=== PATIENT | female | born 1985 | race Caucasian/White ===

== ENCOUNTER 2017-12-20 10:52 | Inpatient (IN) | payer OTHER ==
[2017-12-19 14:37] VITALS: BMI 52.0
--- NOTE | 2017-12-20 13:08 | HP ---
Admitting History and Physical - Admission Chief Complaint: Morbid obesity History Source: Patient Limitations to Obtaining History: No Limitations - Past Medical History ...LMP: 12/17/17 ...LMP Comment: pt. has a IUD - Smoking History Smoking history: Never smoked - Alcohol/Substance Use Hx Alcohol Use: Yes (social) Home Medications - Allergies Allergies/Adverse Reactions: Allergies Allergy/AdvReac Type Severity Reaction Status Date / Time No Known Allergies Allergy Verified 12/20/17 11:48 - Home Medications Home Medications: Ambulatory Orders Cholecalciferol (Vitamin D3) [Vitamin D3] 5,000 unit PO DAILY 12/20/17 Multivitamin [One Daily] 1 each PO DAILY 12/20/17 Family Disease History - Family Disease History Family History: Denies Review of Systems - Review of Systems Constitutional: denies: Chills, Fever HENT: reports: No Symptoms Neck: reports: No Symptoms Cardiovascular: reports: No Symptoms Respiratory: reports: No Symptoms Gastrointestinal: reports: No Symptoms Neurological: reports: No Symptoms Pain Intensity: 0 Physical Examination Vital Signs: Vital Signs Temperature 98.0 F 12/20/17 11:34 Pulse Rate 68 12/20/17 11:34 Respiratory Rate 20 12/20/17 11:34 Blood Pressure 131/82 12/20/17 11:34 O2 Sat by Pulse Oximetry (%) 98 12/20/17 11:33 Constitutional: Yes: Calm HENT: Yes: WNL Neck: Yes: WNL Cardiovascular: Yes: WNL Respiratory: Yes: Regular Gastrointestinal: Yes: Soft, Abdomen, Obese Extremities: Yes: WNL Neurological: Yes: Alert, Oriented Problem List - Problems (1) Morbid obesity due to excess calories Code(s): E66.01 - MORBID (SEVERE) OBESITY DUE TO EXCESS CALORIES (2) BMI 50.0-59.9, adult Code(s): Z68.43 - BODY MASS INDEX (BMI) 50-59.9, ADULT Assessment/Plan Laparoscopic possible open vertical sleeve gastrectomy, possible liver biopsy, EGD
[2017-12-20] MEDS ORDERED: ONDANSETRON 4 MG/2 ML VIAL IVPUSH PRN (13:20)
[2017-12-20] MEDS ORDERED: DEXAMETHASONE SOD PHOSPHATE 4 MG/1 ML VIAL ONE (13:21)
[2017-12-20] MEDS ORDERED: PROPOFOL 20 ML ONE (13:21)
[2017-12-20] MEDS ORDERED: LIDOCAINE HCL/PF 2% SDV 5ML VIAL ONE (13:21)
[2017-12-20] MEDS ORDERED: ONDANSETRON 4 MG/2 ML VIAL ONE (13:21)
[2017-12-20] MEDS ORDERED: fentaNYL CITRATE 250 MCG/5 ML VIAL ONE (13:21)
[2017-12-20] MEDS ORDERED: MIDAZOLAM HCL 2 MG/2 ML SINGLE DOSE VIAL ONE (13:21)
[2017-12-20] MEDS ORDERED: ROCURONIUM BROMIDE 50 MG/5 ML VIAL ONE (13:21)
[2017-12-20] MEDS ORDERED: LACTATED RINGERS SOLUTION 1,000 ML IV SCH (13:30)
[2017-12-20] MEDS ORDERED: ceFAZolin SODIUM 1 GM VIAL ONE (14:00)
[2017-12-20] MEDS ORDERED: ceFAZolin SODIUM 1 GM VIAL IVPB ONE (14:05)
[2017-12-20] MEDS ORDERED: BUPIVACAINE HCL/PF (5 MG/ML) 30 ML VIAL IJ ONE (14:17)
[2017-12-20] MEDS ORDERED: NEOSTIGMINE METHYLSULFATE 0.5 MG/1 ML - 10 ML MDV ONE (14:49)
[2017-12-20] MEDS ORDERED: GLYCOPYRROLATE 0.2 MG/1 ML VIAL ONE (14:49)
[2017-12-20] MEDS ORDERED: morphine SULFATE 4 MG/ML VIAL IVPUSH PRN (14:54)
--- NOTE | 2017-12-20 14:54 | OP ---
Operative Note - Note: Operative Date: 12/20/17 Pre-Operative Diagnosis: Morbid obesity. BMI 52 Operation: Laparoscopic vertical sleeve gastrectomy, wedge liver biopsy, EGD Post-Operative Diagnosis: Other (Morbid obesity, BMI 52, hepatomegaly) Surgeon: Joni Martinez (tai styles) Workgroup Leader: Justen Orellana Anesthesia: General Specimens Removed: Greater curvature of stomach. Liver biopsy Estimated Blood Loss (mls): 30 Drains & Tubes with Location: 36 fr Bougie Operative Report Dictated: Yes
--- NOTE | 2017-12-20 15:18 | SURG ---
Surgery Pediatric Physician Note Pediatric Physician: Justen Orellana PA-C (Suzy) Date of Service: 12/20/17 Diagnosis: morbid obesity Procedure: Laparoscopic vertical sleeve gastrectomy, wedge liver biopsy, EGD I was present for the entirety of the operative procedure. For further detail, please refer to operative report. Visit type - Case Type Case Type: Scheduled - Emergency Emergency Visit: No - New patient This patient is new to me today: Yes Date on this admission: 12/20/17 - Critical Care Critical Care patient: No
[2017-12-20] MEDS: ACETAMINOPHEN 1000 MG/100 ML VIAL (NON FORMULARY) IVPB SCH ×3 (15:25→22:18)
--- NOTE | 2017-12-20 15:39 | SPEC ---
DATE OF OPERATION: 12/20/2017 SURGEON: Joni Martinez MD ELECTRICIAN SECOND: Yoav Stanton PA-C and Elizabeth Orellana. PREOPERATIVE DIAGNOSES: 1. Morbid obesity. 2. Body mass index of 53.1. POSTOPERATIVE DIAGNOSES: 1. Morbid obesity. 2. Body mass index of 53.1. 3. Hepatomegaly. PROCEDURE: 1. Laparoscopic vertical sleeve gastrectomy. 2. Laparoscopic wedge liver biopsy. 3. Upper endoscopy/esophagogastroduodenoscopy. SPECIMEN: 1. Greater curvature of the stomach. 2. Liver biopsy. ESTIMATED BLOOD LOSS: 30 mL DRAINS: None. ANESTHESIA: GET. BOUGIE: Size 36-Moroccan. REASON FOR PROCEDURE: This is a 32-year-old female who presented to the office for weight loss options. After describing different options, she has decided to proceed with the laparoscopic, possible open vertical sleeve gastrectomy, possible liver biopsy, and upper endoscopy. RISKS AND BENEFITS: After describing the different options for weight loss management, the patient decided to proceed with a laparoscopic, possible open vertical sleeve gastrectomy. The patient was seen by the respective subspecialties and cleared for surgery. The risks and benefits of the procedure were explained. These included bleeding, infection, hernia, TX, DVT, PE, injury to surrounding structures including the liver, colon, bowel, spleen, esophagus, vessel injury, nerve injury, weight regain, gastric leak, staple line leak, sleeve leak, obstruction, vitamin deficiency, hair loss and as some of the possible complications. The patient understood and signed informed consent. DESCRIPTION OF PROCEDURE: The patient was placed supine on the operating room table. The patient underwent general endotracheal intubation. The arms were brought out at 90 degrees and secured. A footboard was placed and the legs were secured laterally with padding. The abdomen was prepped and draped in the usual sterile fashion. A timeout was performed. An incision was made in the left upper quadrant and a Veress needle inserted. Pneumoperitoneum was established. Subsequently, the Veress needle was removed and a 5-mm trocar was placed under direct visualization with the laparoscope. The laparoscopic camera was then inserted and inspection of the abdominal cavity was performed. An incision was then made in the supraumbilical area and a 15-mm trocar was placed under direct visualization. A 5-mm trocar was then placed in the right upper quadrant and a 5-mm trocar was placed below the left subcostal margin. A stab wound was made in the subxiphoid area and a Sherry clamp inserted and removed to dilate the tract. A Cindy liver retractor was inserted. The post was secured at the bedside by the nursing staff. The patient was placed in steep reverse Trendelenburg position and the Cindy liver retractor was used to secure the liver towards the anterior abdominal wall. The pylorus was identified and 6 cm proximal to it, the lesser sac was entered using the LigaSure device. All lateral attachments to the greater curvature of the stomach, including the short gastric vessels, were ligated using the LigaSure device toward the gastrosplenic and gastrophrenic ligaments. Once this was done in its entirety, it was confirmed that all tubes within the nasal or oropharyngeal cavity, including a temperature probe, was removed by Anesthesia. The bougie was then inserted by Anesthesia. Transection of the stomach was then begun staying adjacent to the bougie but away from the angularis. Transection of the stomach was performed near the portion of the stomach where the lesser sac was entered. Two laparoscopic Endo-SHARATH black александр were used at this location. Laparoscopic Endo SHARATH purple staple loads were then used for the remainder of the transection until the greater curvature of the stomach was fully transected. This was done staying close to the bougie. Care was taken to stay away from the angle of His cephalad. The staple line was then inspected. Hemostasis was identified. A leak test was then performed. It was clamped distally to the staple line. Irrigation solution was placed in the left upper quadrant and air was insufflated by Anesthesia into the sleeve. No leaks were identified. No obstruction was identified. This was done through the entirety of the staple line. In addition, an upper endoscopy was performed. The endoscope was placed into the patients mouth and the entirety of the esophagus, GE junction, gastric pouch and staple line were inspected. No obstruction or leak was noted. The stomach was suctioned and the endoscope removed fully intact. At this point, the irrigation solution was suctioned and again, hemostasis was noted. A wedge liver biopsy was then performed. The left lobe of the liver was identified and a portion of the edge was grasped. Using electrocautery, a wedge of the liver was excised. This was removed and sent off the field as specimen. Hemostasis at the site of the wedge liver biopsy was attained using electrocautery. The 15-mm supraumbilical trocar was then removed and the greater curvature specimen removed from the site using a sponge stick crane. The specimen was inspected and a Veress needle inserted. The specimen insufflated adequately and no leak was identified. The staple line was noted to be intact. A Bib-Ute device was then used to close the fascia with a 0 Vicryl suture at the site. Again, hemostasis was noted. The Cindy liver retractor was then removed under direct visualization. Pneumoperitoneum was desufflated and the fascial sutures were secured. Hemostasis was noted at all incision sites and Marcaine was injected at all incision sites. All incision sites were closed using 4-0 Biosyn. Sterile dressings were applied. The patient tolerated the procedure well and was transferred to the recovery room in stable condition. The patient was transferred to telemetry for further monitoring. Lorena [id number]
[2017-12-20] MEDS: KETOROLAC TROMETHAMINE 30 MG/1 ML VIAL IVPUSH ONE ×2 (15:40→21:52)
[2017-12-20] MEDS: METOCLOPRAMIDE HCL INJECTION 10 MG/2 ML VIAL IVPUSH SCH ×3 (16:00→22:07)
[2017-12-20 16:32] LABS: HEMATOCRIT 40.8 % (32.4-45.2); HEMOGLOBIN 13.3 GM/dL (10.7-15.3); MCH 26.2 pg (25.7-33.7); MCHC 32.5 g/dl (32.0-36.0); MEAN CELL VOLUME 80.7 fl (80-96); MEAN PLT VOLUME 9.1 fl (7.5-11.1); PLATELET COUNT 250 K/MM3 (134-434); RBC 5.06 M/mm3 (3.60-5.2); RDW 13.5 % (11.6-15.6); WHITE BLOOD COUNT 11.5 K/mm3 (4.0-10.0)
[2017-12-20 16:54] LABS: ALBUMIN 3.5 g/dl (3.4-5.0); ALK PHOS 82 U/L (45-117); ANION GAP 8 MMOL/L (8-16); BILIRUBIN,TOTAL 0.5 mg/dL (0.2-1); BLOOD UREA NITROGEN 10 mg/dL (7-18); CALCIUM 8.3 mg/dL (8.5-10.1); CHLORIDE 104 mmol/L (98-107); CO2 25 mmol/L (21-32); CREATININE 1.2 mg/dL (0.55-1.3); GLUCOSE,RANDOM 120 mg/dL (74-106); SGOT/AST 37 U/L (15-37); SGPT/ALT 50 U/L (13-61); SODIUM 137 mmol/L (136-145); TOT PROT 6.9 g/dl (6.4-8.2)
[2017-12-20] MEDS ORDERED: HYDROmorphone HCl 2 MG/ML VIAL ONE (17:04)
[2017-12-20] MEDS: HYDROmorphone HCl 2 MG/ML VIAL IVPUSH ONE ×2 (17:10→21:53)
[2017-12-20] MEDS ORDERED: FLU VACCINE QUAD 60 MCG/0.5 ML (MDV 18-19) IM ONE (20:30)
[2017-12-20] MEDS: ONDANSETRON 4 MG/2 ML VIAL IVPUSH SCH ×2 (21:52→22:07)
[2017-12-20] MEDS: FAMOTIDINE 20 MG/50 ML IVPB 20 MG/50 ML MG IVPB SCH (22:07)
[2017-12-20] MEDS: ENOXAPARIN NA (PORCINE) 40 MG/0.4 ML DISP.SYRIN SQ SCH (22:07)
[2017-12-20] MEDS: SODIUM CHLORIDE 1,000 ML IV SCH (22:20)
[2017-12-21] MEDS: ONDANSETRON 4 MG/2 ML VIAL IVPUSH SCH ×6 (01:29→22:45)
[2017-12-21] MEDS: ACETAMINOPHEN 1000 MG/100 ML VIAL (NON FORMULARY) IVPB SCH ×2 (04:08→09:23)
[2017-12-21] MEDS: METOCLOPRAMIDE HCL INJECTION 10 MG/2 ML VIAL IVPUSH SCH ×4 (04:09→20:56)
[2017-12-21 07:45] LABS: HEMATOCRIT 37.1 % (32.4-45.2); HEMOGLOBIN 11.7 GM/dL (10.7-15.3); MCH 25.5 pg (25.7-33.7); MCHC 31.7 g/dl (32.0-36.0); MEAN CELL VOLUME 80.6 fl (80-96); PLATELET COUNT 244 K/MM3 (134-434); RDW 13.3 % (11.6-15.6); WHITE BLOOD COUNT 14.2 K/mm3 (4.0-10.0)
[2017-12-21 08:47] LABS: ALBUMIN 3.2 g/dl (3.4-5.0); ALK PHOS 74 U/L (45-117); ANION GAP 8 MMOL/L (8-16); BILIRUBIN,TOTAL 0.7 mg/dL (0.2-1); BLOOD UREA NITROGEN 11 mg/dL (7-18); CHLORIDE 106 mmol/L (98-107); CO2 25 mmol/L (21-32); GLUCOSE,RANDOM 108 mg/dL (74-106); SGOT/AST 37 U/L (15-37); SGPT/ALT 51 U/L (13-61); SODIUM 138 mmol/L (136-145); TOT PROT 6.4 g/dl (6.4-8.2)
--- NOTE | 2017-12-21 09:38 | PN ---
Progress Note (short form) - Note Progress Note: POD#1 Oob and ambulating. Voiding without difficulty. No nausea or emesis. Vital Signs Period Temp Pulse Resp BP Sys/Tapia Pulse Ox Last 24 Hr 98.0 F-98.8 F 62-95 14-22 122-149/64-95 95-100 GEN: Appears comfortable ABD: soft, non-distended, inc tenderness. Inc c/d/i with bandaids. LE: TEDs in place. No lower ext tenderness or swelling noted. CBC, BMP 12/21/17 05:50 12/21/17 05:50 Laboratory Tests 12/20/17 16:00 WBC 11.5 H Hgb 13.3 Hct 40.8 Plt Count 250 A/P: 32 yo female s/p lap vertical sleeve gastrectomy, POD#1 Continue oob and ambulate Awaiting UGI study results, if negative begin bariatric diet Repeat cbc ordered by Dr. Martinez at 1400 today. DVT ppx with lovenox SQ Incentive spirometer D/w Dr. Martinez <Marina Richard - Last Filed: 12/21/17 10:31> - Note Progress Note: Agree POD 1 Pain controlled AVSS Abd soft UGI: no leak/obstruction Repeat CBC Discharge planning <Joni Martinez - Last Filed: 12/21/17 15:21> Problem List - Problems (1) Morbid obesity due to excess calories Code(s): E66.01 - MORBID (SEVERE) OBESITY DUE TO EXCESS CALORIES (2) BMI 50.0-59.9, adult Code(s): Z68.43 - BODY MASS INDEX (BMI) 50-59.9, ADULT <Joni Martinez - Last Filed: 12/21/17 15:21>
[2017-12-21] MEDS: FAMOTIDINE 20 MG/50 ML IVPB 20 MG/50 ML MG IVPB SCH ×2 (11:38→20:59)
[2017-12-21] MEDS: ENOXAPARIN NA (PORCINE) 40 MG/0.4 ML DISP.SYRIN SQ SCH ×2 (11:38→21:03)
[2017-12-21] MEDS: oxyCODONE HCL 5 MG TABLET PO PRN ×2 (15:33→20:55)
[2017-12-21] MEDS: SODIUM CHLORIDE 1,000 ML IV SCH ×2 (16:07→20:55)
[2017-12-21 16:15] LABS: BASO % 0.4 % (0-2.0); EOS % 0.1 % (0-4.5); HEMATOCRIT 36.1 % (32.4-45.2); HEMOGLOBIN 11.8 GM/dL (10.7-15.3); LYMPH % 12.9 % (8-40); MCH 26.2 pg (25.7-33.7); MCHC 32.6 g/dl (32.0-36.0); MEAN CELL VOLUME 80.4 fl (80-96); MEAN PLT VOLUME 9.2 fl (7.5-11.1); MONO % 6.2 % (3.8-10.2); NEUT % 80.4 % (42.8-82.8); PLATELET COUNT 252 K/MM3 (134-434); RBC 4.49 M/mm3 (3.60-5.2); RDW 13.3 % (11.6-15.6); WHITE BLOOD COUNT 13.3 K/mm3 (4.0-10.0)
[2017-12-22] MEDS ORDERED: SODIUM CHLORIDE 1,000 ML IV SCH (01:15)
[2017-12-22] MEDS: ONDANSETRON 4 MG/2 ML VIAL IVPUSH SCH ×2 (02:20→06:44)
[2017-12-22] MEDS: oxyCODONE HCL 5 MG TABLET PO PRN ×2 (02:20→07:34)
[2017-12-22] MEDS: METOCLOPRAMIDE HCL INJECTION 10 MG/2 ML VIAL IVPUSH SCH (02:20)
[2017-12-22 06:48] VITALS: BP 117/69; PULSE 65; TEMP 98.1
--- NOTE | 2017-12-22 07:50 | DS ---
Physical Exam: SUBJECTIVE: Patient seen and examined. No acute events per RN notes. Sitting in bed at 40 degrees. States her abd pain has greatly improved. She's oob and ambulating unassisted. She is voiding/stooling spontaneously. Tolerating bariatric stage 1 diet. Denies n/v/f/c, CP, palpitations or SOB. OBJECTIVE: Vital Signs Temperature 98.1 F 12/22/17 06:00 Pulse Rate 65 12/22/17 06:00 Respiratory Rate 16 12/22/17 06:00 Blood Pressure 117/69 12/22/17 06:00 O2 Sat by Pulse Oximetry (%) 92 L 12/21/17 21:00 PHYSICAL EXAM GENERAL: The patient is awake, alert, and fully oriented, in no acute distress. HEAD: Normal with no signs of trauma. EYES: PERRL, extraocular movements intact, sclera anicteric, conjunctiva clear. ENT: Ears normal, nares patent, oropharynx clear without exudates, moist mucous membranes. NECK: Trachea midline, full range of motion, supple. LUNGS: CTA bilat HEART: RRR ABDOMEN: All surgical ports c/d/i. No hematoma. EXTREMITIES: 2+ pulses, warm, well-perfused, no edema. NEUROLOGICAL: Cranial nerves II through XII grossly intact. Normal speech, gait not observed. PSYCH: Normal mood, normal affect. LABS CBC,CMP WBC 13.3 K/mm3 (4.0-10.0) H 12/21/17 15:30 RBC 4.49 M/mm3 (3.60-5.2) 12/21/17 15:30 Hgb 11.8 GM/dL (10.7-15.3) 12/21/17 15:30 Hct 36.1 % (32.4-45.2) 12/21/17 15:30 MCV 80.4 fl (80-96) 12/21/17 15:30 MCH 26.2 pg (25.7-33.7) 12/21/17 15:30 MCHC 32.6 g/dl (32.0-36.0) 12/21/17 15:30 RDW 13.3 % (11.6-15.6) 12/21/17 15:30 Plt Count 252 K/MM3 (134-434) 12/21/17 15:30 MPV 9.2 fl (7.5-11.1) 12/21/17 15:30 Absolute Neuts (auto) 10.7 K/mm3 (1.5-8.0) H 12/21/17 15:30 Neutrophils % 80.4 % (42.8-82.8) 12/21/17 15:30 Lymphocytes % 12.9 % (8-40) 12/21/17 15:30 Monocytes % 6.2 % (3.8-10.2) 12/21/17 15:30 Eosinophils % 0.1 % (0-4.5) 12/21/17 15:30 Basophils % 0.4 % (0-2.0) 12/21/17 15:30 Nucleated RBC % 0 % (0-0) 12/21/17 15:30 Sodium 138 mmol/L (136-145) 12/21/17 05:50 Potassium 5.0 mmol/L (3.5-5.1) 12/21/17 05:50 Chloride 106 mmol/L (98-107) 12/21/17 05:50 Carbon Dioxide 25 mmol/L (21-32) 12/21/17 05:50 Anion Gap 8 MMOL/L (8-16) 12/21/17 05:50 BUN 11 mg/dL (7-18) 12/21/17 05:50 Creatinine 1.0 mg/dL (0.55-1.3) 12/21/17 05:50 Creat Clearance w eGFR > 60 (>60) 12/21/17 05:50 Random Glucose 108 mg/dL (74-106) H 12/21/17 05:50 Calcium 8.0 mg/dL (8.5-10.1) L 12/21/17 05:50 Total Bilirubin 0.7 mg/dL (0.2-1) 12/21/17 05:50 AST 37 U/L (15-37) 12/21/17 05:50 ALT 51 U/L (13-61) 12/21/17 05:50 Alkaline Phosphatase 74 U/L (45-117) 12/21/17 05:50 Total Protein 6.4 g/dl (6.4-8.2) 12/21/17 05:50 Albumin 3.2 g/dl (3.4-5.0) L 12/21/17 05:50 Serum , Qual Negative 12/20/17 11:01 HOSPITAL COURSE: Date of Admission:12/20/17 Date of Discharge: 12/22/17 taken to OR on date of admission for scheduled elective Laparoscopic vertical sleeve gastrectomy, wedge liver biopsy, EGD. POD #1 patient had an UGI which showed no leak/extravasation or gastric outlet obstruction. She was started on a bariatric stage 1 diet (BS1). Patient continued to have pain. Continued observation, serial abd exams over the next 24 hours. POD #2 patient doing much better, continued to ambulate, BS1 diet. Pain management PO prn. Cleared for discharge home this morning. Follow-up instructions in the dc planning tab. Above discussed with Dr. Martinez and agrees. Minutes to complete discharge: 35
--- NOTE | 2017-12-22 16:28 | PATH ---
Surgical Pathology Report Patient Name: CAMMY ANDRADE [facility]. Rec. #: [id number] /Age/Gender: 1985 (Age: 32) / F Account: [id number] Location: 4 SO PEDS/ADOL Taken: 12/20/2017 Received: 12/21/2017 Reported: 12/22/2017 Physicians: Joni Martinez M.D. Specimen(s) Received A: GREATER CURVATURE STOMACH B: LIVER BIOPSY Clinical History Morbid obesity Final Diagnosis A. GREATER CURVATURE STOMACH, LAPAROSCOPIC VERTICAL SLEEVE GASTRECTOMY: SEGMENT OF STOMACH SHOWING MILD CHRONIC GASTRITIS. IMMUNOSTAINING IS NEGATIVE FOR H. PYLORI ORGANISMS. B. LIVER, BIOPSY: LIVER TISSUE WITH FOCAL STEATOSIS (<5%). NO HISTOLOGIC EVIDENCE OF HEPATITIS. NO INCREASE IN FIBROSIS (TRICHROME STAIN) OR IRON (IRON STAIN) DEPOSITION. Electronically Signed Cristal Braun M.D. Gross Description A. Received in formalin, labeled "greater curvature of stomach," is a 74 gram, 14.0 x 3.2 x 2.7 cm. portion of stomach with a stapled margin of resection. The serosa is sears-prado with minimal attached fat. The mucosa is sears-pink with normal folds. No mucosal masses are identified. Director Custom sections are submitted in one cassette. B. Received in formalin labeled "liver biopsy," is a 3.3 x 1.3 x 0.9 cm sears portion of soft tissue, consistent with a liver biopsy. Director Custom sections are submitted in one cassette. /12/21/2017 saudi12/21/2017
== END 2017-12-22 10:17 | disposition home or self-care (01) | DRG 403 ==
LOC: JSAMEDAYSX 10:52 → J4S 20:26
PROVIDERS: ADMIT Surgery; ATTEND Surgery
PROC: 0DB64Z3 Excision of Stomach, Percutaneous Endoscopic Approach, Vertical (ICD-10-PCS; principal; 2017-12-20 13:30)
PROC: 0FB24ZX Excision of Left Lobe Liver, Percutaneous Endoscopic Approach, Diagnostic (ICD-10-PCS; 2017-12-20 13:30)
PROC: 0DJ08ZZ Inspection of Upper Intestinal Tract, Via Natural or Artificial Opening Endoscopic (ICD-10-PCS; 2017-12-20 13:30)
DX: E66.01 Morbid (severe) obesity due to excess calories (principal); Z68.43 Body mass index [BMI] 50.0-59.9, adult; R16.0 Hepatomegaly, not elsewhere classified; J45.909 Unspecified asthma, uncomplicated
CPT/HCPCS: 36415; 74241-TC-FY; 80053; 84703; 85025; 85027; 86850; 86900; 86901; 88305-TC; 94760; J0131; J7030